=== PATIENT | female | born 1985 | race Caucasian/White ===

== ENCOUNTER → 2024-03-29 13:30 | Outpatient (REF) | payer OTHER, SELFPAY | LOC: HWRAD 13:30 | PROVIDERS: ATTENDING PHYSICIAN Physician Assistant Medical | DX: Z00.00 Encounter for general adult medical examination without abnormal findings (principal); M54.50 Low back pain, unspecified; G89.29 Other chronic pain; M54.6 Pain in thoracic spine | CPT/HCPCS: 72072; 72110 ==

== ENCOUNTER 2024-05-10 14:44 | Outpatient (RCR) | payer OTHER, SELFPAY | END 2024-05-10 23:59 | disposition home or self-care (01) | LOC: RPT 14:44 | PROVIDERS: ATTENDING PHYSICIAN Physician Assistant Medical | DX: M54.50 Low back pain, unspecified (principal); Z73.6 Limitation of activities due to disability | CPT/HCPCS: 97110; 97112; 97162; 97530 ==

== ENCOUNTER 2024-05-17 13:57 | Outpatient (RCR) | payer OTHER, SELFPAY | END 2024-05-20 07:36 | disposition home or self-care (01) | LOC: RPT 13:57 | PROVIDERS: ATTENDING PHYSICIAN Physician Assistant Medical | DX: M54.50 Low back pain, unspecified (principal); Z73.6 Limitation of activities due to disability | CPT/HCPCS: 97110; 97530 ==